=== PATIENT | female | born 1970 ===

== ENCOUNTER 2016-08-12 14:48 | Emergency (ER) | payer OTHER ==
[2016-08-12 15:51] LABS: Basophils % (Auto) 1.1 % (0.0-1.8); Eosinophils % (Auto) 1.5 % (0.0-4.3); Hematocrit 39.7 % (30.3-42.9); Hemoglobin 13.2 gm/dl (10.1-14.3); Mean Corpuscular HGB Conc 33 % (30-34); Mean Corpuscular Hemoglobin 27 pg (28-32); Mean Corpuscular Volume 80 fl (79-97); Platelet Count 324 K/mm3 (140-440); Red Blood Count 4.95 M/mm3 (3.65-5.03); Red Cell Distribution Width 15.9 % (13.2-15.2)
[2016-08-12 16:11] LABS: Anion Gap 19 mmol/L; Blood Urea Nitrogen 15 mg/dL (7-17); Calcium 9.7 mg/dL (8.4-10.2); Carbon Dioxide 25 mmol/L (22-30); Chloride 98.8 mmol/L (98-107); Glucose 95 mg/dL (65-100); Potassium 3.1 mmol/L (3.6-5.0); Sodium 140 mmol/L (137-145)
[2016-08-12] MEDS ORDERED: MORPHINE IV ONE (16:51)
[2016-08-12] MEDS ORDERED: NORMODYNE IV ONE ×2 (16:51→17:07)
[2016-08-12] MEDS ORDERED: BENADRYL IV ONE (16:51)
[2016-08-12] MEDS ORDERED: REGLAN IV ONE (16:51)
[2016-08-12] MEDS ORDERED: NITROSTAT SL ONE (17:08)
--- NOTE | 2016-08-12 17:11 | Emergency Department Report ---
HPI - General Chief Complaint: Syncope Time Seen by Provider: 08/12/16 16:30 - HPI HPI: The patient is a 45-year-old female presents for evaluation of lightheadedness and headache. The patient reports lightheadedness since 1 PM earlier today, greater than 3 hours prior to my evaluation. She states that her lightheadedness was constant and severe, and is exacerbated with position changes. She states that she passed out while sitting at a table eating a snack. Since she has experienced a mild aching generalized constant headache, also for 3 hours duration. The patient denies fever, head injury, chest pain, dyspnea, hemoptysis, abdominal pain, vision or hearing changes, smell or taste changes, paresthesias, facial drooping, slurred speech, seizure-like activity, urine or bowel incontinence or retention, or other focal neurological deficit. ED Past Medical Hx - Past Medical History Previous Medical History?: Yes Hx Hypertension: Yes Additional medical history: pancreatitis - Surgical History Past Surgical History?: Yes Additional Surgical History: thyroid - Social History Smoking Status: Never Smoker Substance Use Type: None - Medications Home Medications: Home Medications Medication Instructions Recorded Confirmed Last Taken Type Acetaminophen/Codeine [Tylenol #3] 1 tab PO Q6H PRN #10 tab 08/12/16 Unknown Rx Levothyroxine [Synthroid] 100 mcg PO QAM 08/12/16 08/12/16 08/11/16 History Thyroid,Pork [[place] Thyroid] 60 mg PO QDAY 08/12/16 08/12/16 08/11/16 History cloNIDine [Catapres] 0.2 mg PO QHS 08/12/16 08/12/16 08/12/16 History ED Review of Systems ROS: Stated complaint: SYNCOPE Other details as noted in HPI Constitutional: denies: fever; reports lightheadedness and syncope ENT: denies: throat or neck pain Respiratory: denies: cough, shortness of breath Cardiovascular: denies: chest pain Endocrine: denies unexplained weight loss or gain Gastrointestinal: denies: abdominal pain, nausea Genitourinary: denies: dysuria Musculoskeletal: denies: leg swelling Skin: denies: rash Neurological: reports headache Hematological/Lymphatic: denies: easy bleeding or easy bruising Psych: denies sadness or hopelessness Physical Exam - Physical Exam Vital Signs: Vital Signs 08/12/16 15:10 Temperature 98.5 F Pulse Rate 58 L Respiratory 16 Rate Blood Pressure 166/78 [Left] O2 Sat by Pulse 98 Oximetry Physical Exam: General: well-nourished, well-developed, no acute distress Head: Normocephalic, atraumatic Eyes: normal sclera, EOMI, PERRL ENT: Mucous membranes are pale and dry Neck: No neck stiffness, no cervical adenopathy Respiratory: Breath sounds equal bilaterally, no wheezing, rales, or rhonchi Cardio: S1 and S2 present, no murmurs, rubs, gallops, capillary refill is delayed Abdomen: Normoactive bowel sounds, soft abdomen, no rigidity, no guarding or rebound tenderness Musc: No pitting edema Skin: No rash Neuro: Alert oriented 3, no facial drooping, normal speech, no pronator drift, no sensation or motor deficit in the arms or legs, reflexes 2+ symmetric on DTR testing, no obvious gross neuro deficit Psych: Normal affect ED Course Vital Signs 08/12/16 15:10 Temperature 98.5 F Pulse Rate 58 L Respiratory 16 Rate Blood Pressure 166/78 [Left] O2 Sat by Pulse 98 Oximetry ED Medical Decision Making - Lab Data Result diagrams: 08/12/16 15:32 08/12/16 15:32 - Medical Decision Making The patient was seen and examined by myself. The patient is placed on a lunchroom monitor and continuous pulse ox. On initial evaluation, the patient was found to be in no distress. EKG was negative for arrithymia or findings suggestive of acute cardiac infarct. Labs and imaging are obtained. The patient is given IV morphine for her pain, and a tablet of nitroglycerin for her elevated blood pressure. Lab results were non-concerning including levels of troponin, WBC, hemoglobin, hematocrit, renal function. The patient was reevaluated and reported that their symptoms were resolved. Arrhythmia or The patient is stable for discharge with outpatient follow-up. The patient is given follow-up and return instructions. The patient expressed understanding and agreed with the plan. The patient is discharged in stable condition. Critical care attestation.: If time is entered above; I have spent that time in minutes in the direct care of this critically ill patient, excluding procedure time. ED Disposition Clinical Impression: Positional lightheadedness, Hypertensive urgency, Dehydration, mild Acute nonintractable headache Qualifiers: Headache type: unspecified Qualified Code(s): R51 - Headache Syncope Qualifiers: Syncope type: unspecified Qualified Code(s): R55 - Syncope and collapse Disposition: DISCHARGED TO HOME OR SELFCARE Is pt being admited?: No Does the pt Need Aspirin: No Condition: Stable Instructions: Syncope (ED), Hypertension (ED), Dehydration (ED), Lightheadedness (ED) Referrals: PRIMARY CARE, [Primary Care Provider] - 3-5 Days Time of Disposition: 17:07
[2016-08-12 18:59] VITALS: BP 141/77
== END 2016-08-12 18:59 | disposition home or self-care (01) ==
LOC: ED 14:48
DX: R42 Dizziness and giddiness (principal); I16.0 Hypertensive urgency; E86.0 Dehydration; R51 Headache; R55 Syncope and collapse; K85.90 Acute pancreatitis without necrosis or infection, unspecified; Z88.8 Allergy status to other drugs, medicaments and biological substances
CPT/HCPCS: 36415; 80048; 84484; 85025; 93005; 93010; 96374; 96375; 99285; J1200; J2270; J2765